=== PATIENT | male | born 1965 | race Native Hawaiian/Other Pacific Islander ===

== ENCOUNTER 2018-02-07 09:43 | Emergency (ER) | payer BC ==
[2018-02-07] MEDS ORDERED: ASPIRIN 81 MG CHEWABLE TABLET PO ONE (09:54)
--- NOTE | 2018-02-07 09:55 | Emergency Department Record ---
History of Present Illness - General Chief Complaint: Chest Pain Stated Complaint: CHEST DISCOMFORT Time Seen by Provider: 02/07/18 09:54 Source: Patient, RN notes reviewed - History of Present Illness Initial Comments: chest pain fro couple days on and off and it is located in the substernal area and he also has left shoulder pain and that has been injuried about a year ago. Cough and it has been on and off for 2 months worse in the last week. He states 2 days ago a BP episode at work where he was having a hard time thinking and went to his Dr. Bo and Ana Maria at [place] on and his BP was high and it was 160/ 110 and he was started on loisinopril 5 mg per day first day yesterday. PMH hypertension and it was diet controlled before yesterday. Stress at work. Pain is mild now. MD Complaint: Chest pain - Related Data Home Medications Medication Instructions Recorded Confirmed Last Taken Lisinopril [Zestril] 5 mg PO DAILY 02/07/18 02/07/18 02/07/18 Previous Rx's Medication Instructions Recorded Azithromycin 250 mg PO DAILY #6 tablet 02/07/18 Naproxen [Naprosyn] 500 mg PO Q12H #20 tab. 02/07/18 Allergies Allergy/AdvReac Type Severity Reaction Status Date / Time Penicillins Allergy Mild hives Verified 02/07/18 10:06 Review of Systems Reviewed: No additional complaints except as noted below Constitutional: Reports: As per HPI. Denies: Chills, Fever, Malaise, Night sweats, Weakness, Weight change Eyes: Reports: As per HPI. Denies: Eye discharge, Eye pain, Photophobia, Vision change ENT: Reports: As per HPI. Denies: Congestion, Dental pain, Ear pain, Epistaxis , Hearing loss, Throat pain Respiratory: Reports: As per HPI, Cough. Denies: Dyspnea, Hemoptysis, Stridor, Wheezes Cardiovascular: Reports: As per HPI, Chest pain. Denies: Arrhythmia, Dyspnea on exertion, Edema, Murmurs, Orthopnea, Palpitations, Paroxysmal nocturnal dyspnea, Rheumatic Fever, Syncope Endocrine: Reports: As per HPI. Denies: Fatigue, Heat or cold intolerance, Polydipsia, Polyuria Gastrointestinal: Reports: As per HPI. Denies: Abdominal pain, Constipation, Diarrhea, Hematemesis, Hematochezia, Melena, Nausea, Vomiting Genitourinary: Reports: As per HPI. Denies: Dysuria, Frequency, Hematuria, Incontinence, Retention, Testicular pain, Testicular mass, Urgency Musculoskeletal: Reports: As per HPI. Denies: Arthralgia, Back pain, Gout, Joint swelling, Myalgia, Neck pain Skin: Reports: As per HPI. Denies: Bruising, Change in color, Change in hair/ nails, Lesions, Pruritus, Rash Neurological: Reports: As per HPI. Denies: Abnormal gait, Confusion, Headache, Numbness, Paresthesias, Seizure, Tingling, Tremors, Vertigo, Weakness Psychiatric: Reports: As per HPI. Denies: Anxiety, Auditory hallucinations, Depression, Homicidal thoughts, Suicidal thoughts, Visual hallucinations Hematological/Lymphatic: Reports: As per HPI. Denies: Anemia, Blood Clots, Easy bleeding, Easy bruising, Swollen glands Physical Exam - General General Appearance: Alert, Oriented x3, Cooperative, No acute distress - Head Head exam: Normal inspection - Eye Eye exam: Normal appearance, PERRL Pupils: Normal accommodation - ENT ENT exam: Normal exam, Mucous membranes moist, Normal external ear exam, Normal orophraynx, TM's normal bilaterally Ear exam: Normal external inspection. negative: External canal tenderness Nasal Exam: Normal inspection. negative: Discharge, Sinus tenderness Mouth exam: Normal external inspection, Tongue normal Teeth exam: Normal inspection. negative: Dental caries Throat exam: Normal inspection. negative: Tonsillar erythema, Tonsillar exudate - Neck Neck exam: Normal inspection, Full ROM. negative: Tenderness - Respiratory Respiratory exam: Normal lung sounds bilaterally. negative: Respiratory distress - Cardiovascular Cardiovascular Exam: Regular rate, Normal rhythm, Normal heart sounds, Other ( chest pain worse with a cough) - GI/Abdominal GI/Abdominal exam: Soft, Normal bowel sounds. negative: Tenderness - Rectal Rectal exam: Deferred - exam: Deferred - Extremities Extremities exam: Normal inspection, Full ROM, Normal capillary refill. negative: Tenderness - Back Back exam: Reports: Normal inspection, Full ROM. Denies: Muscle spasm, Rash noted, Tenderness - Neurological Neurological exam: Alert, Normal gait, Oriented X3, Reflexes normal - Psychiatric Psychiatric exam: Normal affect, Normal mood - Skin Skin exam: Dry, Intact, Normal color, Warm Medical Decision Making - Data Complexity MDM Data: EKG Ordered and/or Reviewed (No acute changes,) - Lab Data Result diagrams: 02/07/18 10:00 02/07/18 10:00 Disposition Clinical Impression: Bronchitis, Chest wall pain Disposition: Home, Self-Care Condition: (1) Good Instructions: Acute Bronchitis (ED), Chest Wall Pain (ED) Additional Instructions: cardiology consult for stress testing follow up with Primary next week Prescriptions: Azithromycin 250 mg PO DAILY #6 tablet Naproxen [Naprosyn] 500 mg PO Q12H #20 tab.dr Forms: Patient Portal Access Time of Disposition: 14:15 Quality - Quality Measures Quality Measures: N/A - Blood Pressure Screening Does Patient Have Any of the Following: No, Active Dx of HTN Blood Pressure Classification: Hypertensive Reading Systolic Measurement: 146 Diastolic Measurement: 101 Screening for High Blood Pressure: Patient Exclusion, Hx of HTN [[id number]]
[2018-02-07 10:08] LABS: BASO % 0.2 % (0-6); EOS % 4.6 % (0-6); GRAN % 56.2 % (47-80); HEMATOCRIT 50.7 % (42.0-52.0); HEMOGLOBIN 17.4 gm/dl (14.0-18.0); LYMPH % 32.6 % (16-45); MEAN CELL VOLUME 87.9 fl (81-97); MEAN CORPUSCULAR HGB CONC 34.3 g/dl (32-36); MEAN PLATELET VOLUME 10.4 fl (7.4-10.4); MONO % 6.4 % (0-9); PLATELET COUNT 162 K/uL (130-400); RED BLOOD COUNT 5.77 M/uL (4.40-5.70); WHITE BLOOD COUNT W/O DIFF 4.8 K/uL (4.2-12.2)
[2018-02-07 10:12] LABS: MEAN CORPUSCULAR HEMOGLOBIN 30.1 pg (27-33)
[2018-02-07 10:17] LABS: BLOOD UREA NITROGEN 17 mg/dL (6-20); CREATININE 0.9 mg/dL (0.7-1.2); EST GLOMERULAR FILTRATION RATE > 60 mL/min
[2018-02-07 10:20] LABS: GLUCOSE,RANDOM 106 mg/dL (74-109)
[2018-02-07 10:25] LABS: CKMB 3.5 ng/mL (<6.73)
--- NOTE | 2018-02-08 17:29 | RADIOLOGY REPORT ---
EXAM: CHEST 2 VIEWS HISTORY: CHEST PAIN FOR TWO DAYS. TECHNIQUE: PA and lateral views. COMPARISON: None. FINDINGS: Heart size is normal. Mild torsion of the aorta. No acute infiltrate seen and no pleural effusion or pneumothorax evident. On the lateral view, there does appear to be a small nodular density about 6 mm in size located along the anterior aspect of the chest superiorly. This is not well seen in the frontal view, although may be a small granuloma located in the paramedial location of either hemithorax, obscured on the frontal view. Recommend comparison with old films. There is mild relative loss of vertebral body height involving the T7 vertebra, which is likely chronic in nature. Again, old films would be useful to confirm. IMPRESSION: 1. NO ACUTE INFILTRATE EVIDENT. 2. SMALL NODULAR DENSITY SUPERIORLY IN THE ANTERIOR ASPECT OF THE CHEST ON THE LATERAL VIEW MAY BE A SMALL GRANULOMA. MILD COMPRESSION OF T7 IS LIKELY CHRONIC. RECOMMEND COMPARISON WITH OLD FILMS. JOB NUMBER: [id number] MTDD
== END 2018-02-07 14:31 | disposition home or self-care (01) ==
LOC: ER 09:43
DX: J20.9 Acute bronchitis, unspecified (principal); R07.89 Other chest pain; M25.512 Pain in left shoulder; I10 Essential (primary) hypertension
CPT/HCPCS: 71046; 80048; 82553; 84484; 85025; 85730; 93005; 93010; 99284